=== PATIENT | male | born 1965 | race Caucasian/White ===

== ENCOUNTER 2019-11-02 11:09 | Observation (INO) | payer OTHER, SELFPAY ==
[2019-11-02] VITALS (7 sets, daily range): BP systolic 120–169; BP diastolic 68–106; PULSE 80–122; RESP 12–20; TEMP 36.6–37.2; O2SAT 95–100; BMI 25.2
--- NOTE | ~2019-11-02 | US_ITS ---
EXAMINATION: US venous doppler [facility] DATE: 11/03/2019 13:31 INDICATION: Calf pain. TECHNIQUE: Grayscale ultrasound images without and with compression and Doppler ultrasound images of the bilateral lower extremity veins were obtained. COMPARISON: None. FINDINGS: The visualized portions of right common femoral vein, profunda (deep) femoral vein, femoral vein, pop liteal vein, peroneal veins, posterior tibial veins, and greater saphenous vein outflow are patent. The visualized portions of left common femoral vein, profunda femoral vein, femoral vein, popliteal v ein, peroneal veins, posterior tibial veins, and greater saphenous vein outflow are patent. IMPRESSION: 1. No deep venous thrombosis. Reviewed, dictated and finalized at location A.
--- NOTE | ~2019-11-02 | CT_ITS ---
EXAMINATION: CT brain wo con EXAM DATE: 11/02/2019 12:08 INDICATION: Seizure, leg weakness. TECHNIQUE: Spiral CT of the head was performed without contrast. Axial, coronal and sagittal images were reviewed. The dose-length product (DLP) for this examination was 605.33 mGy-cm. The exposure w as tailored according to patient size, and iterative reconstruction (ASIR) was used as additional dos e reduction technique. There is no prior study for comparison. FINDINGS: There is no acute intraparenchymal hemorrhage. No evidence of intraparenchymal brain mass lesion. No evidence of acute infarction. Please note that initial head CT has limited sensitivity f or small or acute infarctions. There is mild periventricular and subcortical hypodensity, nonspecific but probably related to small vessel ischemic disease. There is mild prominence of the sulci and v entricles related to cerebral atrophy. There is intracranial carotid arteriosclerosis. There are n o extra-axial collections. There is no mass effect or midline shift. Patient has had bilateral ocul ar lens surgery. Soft tissue is unremarkable. The visualized sinuses and mastoid air cells are well aerated. IMPRESSION: 1. No acute intracranial findings. 2. Chronic age related findings. Reviewed, dictated and finalized at location A.
--- NOTE | ~2019-11-02 | XR_ITS ---
EXAMINATION: XR chest 1V portable EXAM DATE: 11/02/2019 11:47 INDICATION: Seizure. TECHNIQUE: Portable AP frontal chest x-ray was obtained. There is no prior study for comparison. FINDINGS: The lungs are clear. There are no pleural effusions. . Cardiomediastinal silhouette is no rmal. There is no pneumothorax suspected. Old left rib fracture posterolaterally. IMPRESSION: No acute cardiopulmonary findings. Reviewed, dictated and finalized at location A.
--- NOTE | 2019-11-02 11:31 | ECG_ITS ---
Measurements Intervals [place] Rate: 96 P: 64 ID: [id number] QRS: 79 QRSD: 92 T: 62 QT: 321 QTc: 407 Interpretive Statements SINUS RHYTHM BASELINE ARTIFACT- I, II, III, AVR, AVL, AVF NORMAL ECG Electronically Signed On 11-02-2019 14:08:26 CDT by Elijah Ramirez D.O.
--- NOTE | 2019-11-02 11:33 | ED.SEIZURE ---
HPI - Seizure General Chief Complaint: Seizure Stated Complaint: SZ Time Seen by Provider: 11/02/19 11:16 Source: patient and EMS Mode of arrival: EMS History of Present Illness HPI Narrative: This patient is a 54 year old male who denies medical problems who presents for evaluation of a seizure. 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 EMS states it was described as a general tonic clonic seizure and patient was postictal on EMS arrival. Patient reports he remembers going to work and he felt dehydrated at that time. HE denies headache, nausea, vomiting , diarrhea or chest pain. He also denies history of a previous seizure. He admitted to heavy daily alcohol use but he is unable state how many beers per day he drinks. His last beer was last night before he went to sleep. complaint: seizure Description of Episode: tonic-clonic movement Witnessed: Yes - by Bystander Trauma: No Seizure History: No Place: work Possible Precipitating Event: other (working in heat) Associated symptoms: malaise Related Data Home Medications Medication Instructions Recorded Confirmed No Home Medications 11/02/19 11/02/19 Allergies Allergy/AdvReac Type Severity Reaction Status Date / Time No Known Allergies Allergy Verified 11/02/19 11:18 Review of Systems Review of Systems: All systems reviewed & are unremarkable except as noted in HPI and below Constitutional: Constitutional: Denies chills and Denies fever(s) Cardiovascular: Cardiovascular: Denies chest pain and Denies radiating jaw, neck or arm pain Respiratory: Respiratory: Denies cough and Denies dyspnea Gastrointestinal: Gastrointestinal: Denies abdominal pain, Denies nausea and Denies vomiting Psychiatric: Psychiatric: Denies anxiety PMFSH Past Medical History Medical History (Updated 11/02/19 @ 14:18 by Mara Branch MD) Patient denies medical problems Surgical History Surgical History (Updated 11/02/19 @ 11:40 by Mara Branch MD) No significant past surgical history Family History Family History (Updated 11/02/19 @ 16:44 by Milan Morfin RN) Mother Metastasis from breast cancer Social History Social History (Updated 11/02/19 @ 11:40 by Mara Branch MD) Smoking packs per day: 1 Smoking cigarettes per day: 20.0 Years smoked: 16 Smoking pack-years: 16.00 Smoking status: Current every day smoker Tobacco type: cigarettes Second hand tobacco smoke exposure: Yes Alcohol intake: current Substance use: never Other substance usage details: Patient states he is unsure of the amount he drinks. Gender identity (if verbalized by the patient): Male Spiritual care concerns: No Exam Narrative: Exam Narrative: GENERAL: Well-appearing, well-nourished, and in no acute distress. HEAD: Normocephalic, atraumatic EYES: PERRLA and EOMI, conjunctiva clear without discharge EARS: TM's clear bilaterally without erythema or dullness NOSE: Nares clear, no rhinorrhea or epistaxis THROAT:Mucous membranes moist, Oropharynx normal without erythema, exudate, peritonsillar swelling or fluctuance NECK: Supple, without lymphadenopathy or mass RESPIRATORY: No respiratory distress, Airway patent, Respirations non-labored, Clear to auscultation without rales, rhonchi or wheeze HEART: tachycardic rate and regular rhythm. No murmur heard. Normal peripheral pulses. ABDOMEN: Soft, nontender, nondistended, normal active bowel sounds. No masses. No rebound or guarding, No organomegaly. EXTREMITIES: No edema, normal strength with full range of motion. SKIN: Warm, dry, normal color without rash, extremely tanned NEURO: Alert and oriented x3. CN 2-12 grossly intact. No focal deficits. PSYCH: Normal mood and affect. Course Reevaluation(s) Reevaluation #1: Patient is agreeable to admission for seizure and alcohol withdrawal. He is only slightly tremulous in hands. He is
[2019-11-02 11:53] LABS: Alveolar/Arterial O2 Gradient 42.7 mmHg; Base Excess ABG -4.9 mEq/l (+/-2.0); Carboxyhemoglobin 2.7 % THb (0-2.0); Fractional Inspired Oxygen 21 %; HCO3 ABG 17.6 mEq/l (22.0-26.0); Methemoglobin ABG 0.2 %THb (0-1.5); Oxygen Content ABG 18.9 %vol (16.0-22.0); Oxygen Saturation ABG 95.6 % (95.0-100.0); Oxyhemoglobin 92.2 % THb (90.0-100.0); PO2 ABG 74.7 mmHg (80.0-100.0); PO2 FiO2 Ratio Arterial Blood 3.56 %; Reduced Hemoglobin 4.9 %THb (0-5.0); Total Hemoglobin 14.6 g/dL (12.0-18.0); pH ABG 7.433 (7.350-7.450)
[2019-11-02 11:54] LABS: Device ROOM AIR; Modified Allen's Test Pass; Site Drawn RIGHT RADIAL
[2019-11-02 12:34] LABS: Basophils Percent Auto 0.2 % (0.2-1.2); Hemoglobin 14.6 g/dL (14.0-18.0); Immature Granulocyte Absolute 0.03 K/mm3 (0.00-0.031); Immature Granulocyte Percent A 0.6 % (0-0.5); Immature Platelet Fraction Pct 5.2 % (0.9-11.2); Lymphocytes Absolute Auto 0.41 K/mm3 (0.9-3.2); Lymphocytes Percent Auto 8.1 % (18.3-44.2); Mean Corpuscular HGB Conc 34.8 g/dl (32-36); Mean Corpuscular Hemoglobin 32.5 pg (26-34); Mean Corpuscular Volume 93.5 fl (80-100); Mean Platelet Volume 10.6 fl (7.4-10.4); Monocytes Absolute Auto 0.4 K/mm3 (0.1-0.6); Monocytes Percent Auto 7.1 % (2.6-8.5); Neutrophils Absolute Auto 4.2 K/mm3 (1.3-6.7); Platelet Count Result 105 k/mm3 (150-375); Red Blood Count 4.49 M/mm3 (4.6-6.20); Red Cell Distribution Width 14.3 % (11.5-14.5)
[2019-11-02] MEDS: SODIUM CHLORIDE 0.9% IV 1,000 ML 999 ML IV CONT ×2 (12:34→12:35)
[2019-11-02 12:44] LABS: Prothrombin Time 12.6 Seconds (11.1-14.7)
[2019-11-02 12:47] LABS: Alanine Aminotransferase 99 U/L (4-50); Albumin Level 4.5 g/dL (3.5-5.1); Alkaline Phosphatase 111 U/L (38-126); Aspartate Amino Transferase 160 U/L (17-59); Bilirubin,Total 0.9 mg/dL (0.2-1.3); Blood Urea Nitrogen 11 mg/dL (9-20); Calcium 8.8 mg/dL (8.4-10.2); Carbon Dioxide 21 mmol/L (22-30); Chloride 103 mmol/L (98-107); Estimated CRCL calculation 65 ml/min; Estimated Glomerular Filt Rate > 60; Glucose 106 mg/dL (75-110); Magnesium 1.7 mg/dL (1.6-2.3); Potassium 4.4 mmol/L (3.4-5.0); Sodium 134 mmol/L (137-145)
[2019-11-02 12:54] LABS: Ammonia < 9 umol/L (9-30)
[2019-11-02 13:00] LABS: Ethanol < 10 mg/dL (<10)
[2019-11-02 13:51] LABS: Amphetamine Screen Urine Negative (Negative); Barbiturate Screen Urine Negative (Negative); Benzodiazepines Screen Urine Negative (Negative); Cannabinoid Screen Urine Positive (Negative); Cocaine Screen Urine Negative (Negative); Methadone Screen Urine Negative (Negative); Opiate Screen Urine Negative (Negative); Phencyclidine Screen Urine Negative (Negative)
[2019-11-02 15:14] LABS: Appearance Urine Clear (Clear); Blood Urine 1+ (Negative); Color Urine Straw (Yellow); Glucose Urine UA Negative (Negative); Ketones Urine 1+ mg/dL (Negative); Protein Urine Negative (Negative); Specific Grav Ur 1.012 (1.001-1.035)
[2019-11-02 15:15] LABS: Add Urine Microscopic? YES; Bilirubin Urine Negative (Negative); Leukocyte Esterase Ur Negative LEU/UL (Negative); Mucus Urine Rare /lpf; Nitrate Urine Negative (Negative); RBC Urine 0-2 /hpf (0-2); Urobilinogen Urine Negative mg/dL (<2.0); WBC Urine 0-3 /hpf
[2019-11-02] MEDS: NICOTINE (*PBKC) 14 MG PATCH 1 PATCH TRANSDERM (15:31)
--- NOTE | 2019-11-02 16:29 | ADMGEN ---
This patient, Shalom Paniagua, was admitted to 2 Medical Room 257-. Patient/family oriented to hospital policies and general routines including ID bracelet, bed and alarms, visiting hours, pain management, procedures, bathroom and other care routines, personal items, smoking policy, room service/diet, and visiting hours. Valuables list has been completed. Information on how to activate the Rapid Response Team has been discussed. Patient/Family are encouraged to report perceived risks to care and to ask questions if they do not understand what they are told or what they should do.
--- NOTE | 2019-11-02 19:52 | PM.IMHP ---
H&P: HPI History of Present Illness Chief complaint: new onset seizure/alcohol withdrawal Narrative: Shalom Paniagua is a 54 year old male no past medical history but has a history of alcoholism. The patient stated that he has been binge drinking for about 5 months since he has been on the state home order due to COVID. The patient stated that he went back to work today and got overheated and woke up in the hospital. Patient stated he last drank last night. He thinks he possibly drinks about 8 beers a night. 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 No acute intracranial findings. Chronic age-related findings. Chest x-ray was read as no acute cardiopulmonary findings. A banana bag was found on the patient in the emergency room. Neurology was called. IV fluids were started, nicotine patch, in Ativan in the emergency room. Date of service 11/02/2019 Review of Systems Review of Systems: All systems reviewed & are unremarkable except as noted in HPI and below Constitutional: Constitutional: Reports as per HPI and Reports no additional constitutional complaints Eyes: Eyes: Reports as per HPI and Reports no additional eye complaints ENT: Reports system reviewed and no additional complaints, except as documented and Reports Normal hearing present Cardiovascular: Cardiovascular: Reports no additional cardiovascular complaints Respiratory: Respiratory: Reports no additional respiratory complaints and Reports no additional respiratory complaints Gastrointestinal: Gastrointestinal: Reports as per HPI and Reports no additional gastrointestinal complaints Musculoskeletal: Musculoskeletal: Reports no additional musculoskeletal complaints Integumentary/Breasts: Skin/Breast: Reports system reviewed and no additional complaints, except as docu and Reports as per HPI Neurologic: Reports system reviewed and no additional complaints, except as documented, Reports as per HPI and Reports Normal hearing present Psychiatric: Psychiatric: Reports no additional psychiatric complaints and Reports as per HPI Endocrine: Endocrine: Reports no additional endocrine complaints Hematologic/Lymphatic: Hematologic/Lymphatic: Reports no additional hematologic/lymphatic complaints Allergic/Immunologic: Allergic/Immunologic: Reports no additional allergic/immunologic complaints [facility] Past Medical History Medical History (Updated 11/02/19 @ 20:05 by Crorine Oquendo NP) Patient denies medical problems Surgical History Surgical History (Updated 11/02/19 @ 11:40 by Mara Branch MD) No significant past surgical history Family History Family History (Updated 11/02/19 @ 20:00 by Corrine Oquendo NP) Mother Metastasis from breast cancer Father Dementia Social History Social History (Updated 11/02/19 @ 20:02 by Corrine Oquendo NP) Social History: The patient stated that he lives with a significant other and that she would be his durable power attorney law clerk for healthcare in the event that he was not able to make decisions for himself. He is cohabitating with his significant other. He has no children. He works for [employer]. He states that he might drink anywhere from 8-10 beers a day but he does not really count. He does not think he drinks a 12 pack though. He does occasionally use some marijuana but no other illicit drugs. Patient desires to be a full code. He continues to smoke a pack a cigarettes a day. Smoking packs per day: 1 Smoking cigarettes per day: 20.0 Years smoked: 16 Smoking pack-years: 16.00 Smoking status: Current every day smoker Tobacco type: cigarettes Second hand tobacco smoke exposure: Yes Alcohol intake: current Substance use: never Other substance usage details: Patient states he is unsure of the amount he drinks. Gender identity (if verbalized by the patient): Male Spiritual care concerns: No Meds Home Medications and Aller
[2019-11-03] VITALS: PULSE 68; PULSE 72
[2019-11-03 04:00] VITALS: PULSE 74; PULSE 76
[2019-11-03 05:08] LABS: Basophils Percent Auto 0.5 % (0.2-1.2); Hematocrit 40.2 % (42.0-52.0); Hemoglobin 13.7 g/dL (14.0-18.0); Immature Granulocyte Absolute 0.01 K/mm3 (0.00-0.031); Immature Granulocyte Percent A 0.3 % (0-0.5); Lymphocytes Absolute Auto 1.03 K/mm3 (0.9-3.2); Lymphocytes Percent Auto 26.3 % (18.3-44.2); Mean Corpuscular HGB Conc 34.1 g/dl (32-36); Mean Corpuscular Hemoglobin 32.4 pg (26-34); Mean Platelet Volume 10.3 fl (7.4-10.4); Monocytes Absolute Auto 0.5 K/mm3 (0.1-0.6); Monocytes Percent Auto 12.2 % (2.6-8.5); Neutrophils Absolute Auto 2.3 K/mm3 (1.3-6.7); Neutrophils Percent Auto 59.7 % (45.5-73.1); Platelet Count Result 91 k/mm3 (150-375); Red Blood Count 4.23 M/mm3 (4.6-6.20); Red Cell Distribution Width 14.4 % (11.5-14.5); White Blood Count 3.9 K/mm3 (4.5-10.0)
[2019-11-03 05:19] LABS: Alanine Aminotransferase 86 U/L (4-50); Albumin Level 3.9 g/dL (3.5-5.1); Alkaline Phosphatase 84 U/L (38-126); Aspartate Amino Transferase 147 U/L (17-59); Bilirubin,Total 0.9 mg/dL (0.2-1.3); Blood Urea Nitrogen 8 mg/dL (9-20); CRP 0.6 mg/dL (<1.0); Calcium 8.1 mg/dL (8.4-10.2); Carbon Dioxide 19 mmol/L (22-30); Chloride 104 mmol/L (98-107); Estimated CRCL calculation 88 ml/min; Estimated Glomerular Filt Rate > 60; Glucose 82 mg/dL (75-110); Lactic Acid 0.5 mmol/L (0.7-2.1); Magnesium 2.2 mg/dL (1.6-2.3); Potassium 3.7 mmol/L (3.4-5.0); Sodium 135 mmol/L (137-145)
[2019-11-03 06:00] VITALS: BP 119/71; PULSE 77; RESP 16; TEMP 36.8; O2SAT 98
[2019-11-03 08:00] VITALS: PULSE 90
[2019-11-03] MEDS: FOLIC ACID 1 MG TABLET PO (08:23)
[2019-11-03] MEDS: THIAMINE HCL 100 MG TABLET PO (08:23)
[2019-11-03 12:00] VITALS: PULSE 90
[2019-11-03 14:00] VITALS: BP 160/96; PULSE 78; RESP 14; TEMP 36.8; O2SAT 100
--- NOTE | 2019-11-03 15:05 | WPDNEURCNPN ---
Assessment and Plan Assessment and plan (1) Tobacco abuse: Code(s): Z72.0 - Tobacco use Status: Acute (2) New onset seizure: Code(s): R56.9 - Unspecified convulsions Status: Acute (3) Alcohol withdrawal: Code(s): F10.239 - Alcohol dependence with withdrawal, unspecified Status: Acute Additional Plan patient has already signed AMA. He just does not want to wait for any workup he is in so much [place] that he will not be able to answer any further questions by this examiner I have very politely suggested that he should sees primary care physician for the follow-up and should not be driving. I also told him seek advise for his alcohol. I do not believe that he is going to listen to me and follow through on my advise as he has signed against medical advise Consult date: 11/03/19 Time Seen: 15:00 HPI: Shalom Paniagua is a 54 year old male where mouse to see because of alleges seizures. The patient has already signed out AMA and just wants to leave he barely was able to talk to me for few minutes what he tells me is as follows next He told me am going to leave no matter what he denies any headache nausea vomiting chest pain or shortness of breath he also tells me that he has always been a borderline epileptic I do not know what does he mean by that he is ambidextrous and does not have a family to give me a family history he does drink heavily he accepts it and no nodes risk in the benefits his CT head is negative he does not want to have the EEG does not want to have the MRI and just wants to go home Review of Systems Review of Systems: All systems reviewed & are unremarkable except as noted in HPI and below PMFSH Past Medical History Medical History Patient denies medical problems Surgical History Surgical History No significant past surgical history Family History Family History Mother Metastasis from breast cancer Father Dementia Social History Social History Social History: The patient stated that he lives with a significant other and that she would be his durable power estate planning attorney for healthcare in the event that he was not able to make decisions for himself. He is cohabitating with his significant other. He has no children. He works for [employer]. He states that he might drink anywhere from 8-10 beers a day but he does not really count. He does not think he drinks a 12 pack though. He does occasionally use some marijuana but no other illicit drugs. Patient desires to be a full code. He continues to smoke a pack a cigarettes a day. Smoking packs per day: 1 Smoking cigarettes per day: 20.0 Years smoked: 16 Smoking pack-years: 16.00 Smoking status: Current every day smoker Tobacco type: cigarettes Second hand tobacco smoke exposure: Yes Alcohol intake: current Substance use: never Other substance usage details: Patient states he is unsure of the amount he drinks. Gender identity (if verbalized by the patient): Male Spiritual care concerns: No Meds Home Medications and Allergies Home Medications Medication Instructions Recorded Confirmed Type No Home Medications 11/02/19 11/02/19 History Allergies Allergy/AdvReac Type Severity Reaction Status Date / Time No Known Allergies Allergy Verified 11/02/19 11:18 Vital Signs Vital Signs - 24 hr 11/02/19 16:17 11/02/19 16:30 11/02/19 20:00 Temperature 36.6 C Pulse Rate 86 85 81 Pulse Rate [Left Radial Palpation] 88 Respiratory Rate 18 Blood Pressure 169/90 H Pulse Oximetry 100 11/02/19 21:19 11/03/19 00:00 11/03/19 04:00 Temperature 37.2 C Pulse Rate 80 72 74 Pulse Rate [Left Radial Palpation] 68 76 Respiratory Rate 12 Blood Pressure 120/68 Pulse Oximetry 98
--- NOTE | 2019-11-03 15:31 | PM.DS ---
DS: Admitting Diagnosis Admitting Diagnosis Admitting Diagnosis: Unspecified convulsions DS: Discharge Diagnosis Discharge Diagnosis (1) New onset seizure: Code(s): R56.9 - Unspecified convulsions Status: Acute Assessment and Plan: Most likely due to his binge drinking vs dehydration from working out in the heat. Patient was given IV Ativan upon arrival in the ER. Patient has never had a seizure in the past. telemetry showed normal sinus rhythm with a heart rate of 95 bpm, which elevated to sinus tachycardia when he went to the bathroom. no acute cardiac arrhythmia noted. He denies any chest pain, shortness of breath or cough. An EEG has been ordered and they were suppose to get to him this afternoon but we called and they will not do his testing until tomorrow morning the patient refused to stay another day to have the EEG completed. I called Dr. Sofia the neurologist, who wanted to evaluate the patient before he would be discharged. I was called by the nursing staff and inform that the patient is going to leave against medical advice because his ride was leaving and he did not want to stay any longer. I informed the patient that he needs to follow-up with primary care provider within 1 week of discharge and our neurologist for further evaluation and workup. Informed the patient he should not drive or go back to work until cleared by his primary care provider or neurologist. the patient side to leave against medical advice prior to seeing our neurologist (2) Alcohol withdrawal: Code(s): F10.239 - Alcohol dependence with withdrawal, unspecified Status: Acute Assessment and Plan: the patient has been drinking more heavily for the last 5 months since he has been without a job because of COVID his alcohol level on arrival was normal He was given thiamin and folic acid. he was not given any Librium because of his normal CIWA score. His CIWA has been 0 or 1. he is not have any withdrawal symptoms at this time. He was instructed not to drink anymore after discharge to prevent any further seizures or liver problems. (3) Tobacco abuse: Code(s): Z72.0 - Tobacco use Status: Acute Assessment and Plan: Patient has been offered a nicotine patch. (4) Calf pain: Code(s): M79.669 - Pain in unspecified lower leg Status: Acute Assessment and Plan: patient reports significant calf discomfort but states because of his job. he denies any leg swelling. venous Doppler of his lower extremities were completed and negative for any acute DVT DS: Summary Hospital Course Reason for hospitalization: Patient is a 54-year-old man with a history of alcohol abuse, presented to the emergency room after he was working outside in the heat for the 1st time in 5 months and had a possible seizure that was reported by some of his colleagues. He has been binge drinking for the last 5 months since he has been out of work about 5 beers a night. He does report feeling pretty dehydrated with working out the heat. he does not remember anything until he woke up in the ambulance on the way to the ER. initial labs showed, temp 98.8, blood pressure 147/106, tachycardic heart rate of 122, respiratory rate 20, oxygen saturation 95% on room air. Initial labs showed, thrombocytopenia 105, normal coag panel, slightly low sodium at 134, AST slightly elevated at 160 and ALT at 99. normal TSH. Normal CRP. Urinalysis showed 1+ ketones, 1+ blood and 3-4 hyaline cast. No acute infection. Urine drug screen was positive for cannabinoids. alcohol level was 0. chest x-ray showed no acute cardiopulmonary findings. CT head showed no acute intracranial findings. Chronic age related findings. he
== END 2019-11-03 15:09 | disposition left against medical advice (07) ==
LOC: ANHED 14:28 → ANH2MED 14:49
PROVIDERS: Nurse Practitioner; Admitting Provider Internal Medicine; Emergency Provider General Practice; Visit Provider Physician Assistant
DX: R56.9 Unspecified convulsions (principal); F10.239 Alcohol dependence with withdrawal, unspecified; M79.662 Pain in left lower leg; M79.661 Pain in right lower leg; F17.210 Nicotine dependence, cigarettes, uncomplicated; R00.0 Tachycardia, unspecified
CPT/HCPCS: 36415; 36600; 70450; 71045; 80053; 80307; 81001; 82140; 82375; 82805; 83050; 83605; 83735; 84443; 85025; 85055; 85610; 85730; 86140; 93005; 93970; 96361; 96365; 96375; 99285; A9270; G0378; G0379; J2060; J3411; J3475; J7030

== ENCOUNTER 2020-11-27 19:26 | Emergency (ER) | payer OTHER, SELFPAY ==
--- NOTE | ~2020-11-27 | CT_ITS ---
EXAMINATION: CT pelvis wo con DATE: 11/27/2020 20:41 INDICATION: Back pain post fall TECHNIQUE: High resolution computed tomography (CT) of the was performed without intravenous contrast . Additional sagittal and coronal reconstructions were performed. Automated exposure control and iter ative reconstruction technique were employed. The dose-length product was 180.45 mGy-cm. COMPARISON: None FINDINGS: 2 mm retrolisthesis L4 on L5 and L5 on S1 with moderate to severe disc height loss at both levels. Reuben ne alignment is otherwise normal. No fracture. Mild bilateral hip osteoarthritis. No hip joint effusi on. Small sclerotic bone islands at the right femoral neck and at the left posterior iliac spine. Non specific 5.7 x 3.2 x 2.6 cm low-attenuation cystic fluid collection extending along the anterior left gluteus minimus muscle belly without evident soft tissue component, possibly a ganglion cyst. No rcihmond rrounding inflammatory stranding or higher attenuation hemorrhage to suggest sequela of acute injury. Visualized portion of the bowels including the appendix are normal. Bladder is normal. No free fluid in the pelvis. No pathologically enlarged pelvic or inguinal lymphadenopathy. IMPRESSION: 1. No fracture or other acute osseous abnormality. 2. Moderate to severe lower lumbar spondylosis. 3. Ossific 5.7 x 3.2 x 2.6 similar cystic lesion in the left gluteus minimus muscle belly which could represent a ganglion cyst. Location is somewhat unusual and could consider further evaluation with p re and postcontrast MRI. Reviewed, dictated and finalized at location A. IMPRESSION: 1. No fracture or other acute osseous abnormality. 2. Moderate to severe lower lumbar spondylosis. 3. Ossific 5.7 x 3.2 x 2.6 similar cystic lesion in the left gluteus minimus mu scle belly which could represent a ganglion cyst. Location is somewhat unusual and could consider further evaluation with pre and postcontrast MRI.
--- NOTE | ~2020-11-27 | CT_ITS ---
EXAMINATION: CT brain wo con DATE: 11/27/2020 20:41 INDICATION: Fall with syncope TECHNIQUE: Computed tomography (CT) of the head was performed without intravenous contrast. Sagittal and coronal reconstructions were performed. The mA was adjusted according to patient size. Iterative reconstruction technique was employed. The dose-length product was 681.00 mGy-cm. COMPARISON: head CT dated 11/02/2019 FINDINGS: No fracture. No acute intracranial hemorrhage, acute infarction or abnormal extra axial fluid collect ion. Symmetric prominence of the sulci and subarachnoid spaces overlying the convexities consistent w ith mild age-appropriate diffuse cerebral volume loss. Ventricles are normal and symmetric. No mass/ mass effect. Mucous retention cyst in the right maxillary sinus. The orbits and mastoid air cells are normal. IMPRESSION: 1. No fracture or acute intracranial process. Reviewed, dictated and finalized at location A.
--- NOTE | ~2020-11-27 | XR_ITS ---
EXAMINATION: XR chest 1V portable DATE: 11/27/2020 20:41 INDICATION: Syncope and fall TECHNIQUE: frontal view of the chest was obtained. COMPARISON: Chest radiograph dated 11/02/2019 FINDINGS: The lungs remain clear with no focal airspace opacities, pulmonary edema, pleural effusion or pneumot horax. The cardiomediastinal silhouette is normal. Visualized bones and soft tissues are unremarkable . IMPRESSION: 1. No acute cardiopulmonary disease. Reviewed, dictated and finalized at location A.
[2020-11-27 19:30] VITALS: BP 148/100; PULSE 56; RESP 20; TEMP 37.3; O2SAT 96
--- NOTE | 2020-11-27 19:43 | ECG_ITS ---
Measurements Intervals [place] Rate: 117 P: [place]: 0 QRS: -19 QRSD: 85 T: 75 QT: 303 QTc: 423 Interpretive Statements SINUS TACHYCARDIA BORDERLINE R WAVE PROGRESSION, ANTERIOR LEADS BASELINE ARTIFACT- AVL, V2 ABNORMAL ECG Electronically Signed On 11-28-2020 6:27:50 CDT by Elijah Ramirez D.O.
[2020-11-27 20:27] LABS: Hematocrit 44.6 % (40.0-54.0); Hemoglobin 15.5 g/dL (14.0-18.0); Immature Platelet Fraction Pct 8.9 % (1.0-7.0); Mean Corpuscular HGB Conc 34.8 g/dL (32.0-36.0); Mean Corpuscular Hemoglobin 31.8 pg (27.0-31.0); Mean Corpuscular Volume 91.4 fL (78.0-102.0); Mean Platelet Volume 12.7 fl (8.7-11.0); Platelet Count Result 67 K/mm3 (150-420); Red Blood Count 4.88 M/mm3 (4.70-6.10); White Blood Count 3.5 K/mm3 (4.8-10.8)
[2020-11-27] MEDS: ONDANSETRON INJ 4 MG/2 ML VIAL IV PUSH (20:31)
[2020-11-27] MEDS: SODIUM CHLORIDE 0.9% IV 1,000 ML 999 ML IV CONT (20:31)
[2020-11-27] MEDS: PANTOPRAZOLE SODIUM IV 40 MG VIAL IV PUSH (20:31)
[2020-11-27 20:39] LABS: Alanine Aminotransferase 116 U/L (16-63); Albumin Level 4.4 g/dL (3.4-5.0); Alkaline Phosphatase 110 U/L (46-116); Anion Gap 21 mmol/L (8-16); Aspartate Amino Transferase 174 U/L (15-37); Bilirubin,Total 1.6 mg/dL (0.00-1.00); Blood Urea Nitrogen 11 mg/dL (7-18); Calcium 9.5 mg/dL (8.5-10.1); Carbon Dioxide 19 mmol/L (21-32); Chloride 96 mmol/L (98-108); Estimated Glomerular Filt Rate 56; Glucose 141 mg/dL (70-99); Osmolality Calculated 283 mOsm/kg (285-295); Potassium 4.5 mmol/L (3.5-5.1); Sodium 136 mmol/L (136-145); Total Protein 8.3 g/dL (6.4-8.2); Troponin I 8.4 ng/L (0.00-60.4)
[2020-11-27 20:41] LABS: Lactic Acid Reflex 3.4 mmol/L (0.4-2.0)
[2020-11-27 20:59] LABS: Ethanol < 3 mg/dL (0-6)
[2020-11-27 21:13] LABS: Add Urine Microscopic? YES; Appearance Urine Clear (Clear); Bilirubin Urine 1+ (Negative); Blood Urine 2+ (Negative); Color Urine Yellow (Yellow); Glucose Urine UA Negative (Negative); Ketones Urine 3+ (Negative); Leukocyte Esterase Ur Negative (Negative); Nitrate Urine Negative (Negative); Protein Urine 2+ (Negative); Specific Grav Ur 1.025 (1.010-1.020)
[2020-11-27 21:19] LABS: Amphetamine Screen Urine Negative (Negative); Barbiturate Screen Urine Negative (Negative); Benzodiazepines Screen Urine Negative (Negative); Cannabinoid Screen Urine Positive (Negative); Cocaine Screen Urine Negative (Negative); Methadone Screen Urine Negative (Negative); Opiate Screen Urine Negative (Negative); Phencyclidine Screen Urine Negative (Negative)
[2020-11-27 21:25] LABS: WBC Urine 0-3 /hpf (0-3)
[2020-11-27 21:26] LABS: Bacteria Urine 1+ /hpf; Hyaline Casts Urine 15-19 /lpf; Squamous Epithelial Cell Urine Occasional /hpf (Few)
[2020-11-27 21:27] LABS: Mucus Urine Heavy /lpf
[2020-11-27 21:59] LABS: Neutrophils Percent Manual 82 % (46-73); Total Cells Counted 100
[2020-11-27 22:00] LABS: Lymphocytes Absolute Manual 0.38 K/mm3 (1.1-4.5); Lymphocytes Percent Manual 11 % (18-44)
[2020-11-27 22:01] LABS: Band Neutrophils Percent 0 % (0-6); Basophils Percent Manual 0 % (0-1); Eosinophils Absolute Manual 0.03 K/mm3 (0.02-0.5); Eosinophils Percent Manual 1 % (1-6); Monocytes Absolute Manual 0.21 K/mm3 (0.1-0.90); Monocytes Percent Manual 6 % (3-9); Neutrophils Absolute Manual 2.87 K/mm3 (1.3-6.7); Platelet Estimate Adequate (Adequate)
--- NOTE | 2020-11-27 22:59 | ED.SYNCOPE ---
HPI - Syncope General Chief Complaint: Syncope Stated Complaint: ambulance Time Seen by Provider: 11/27/20 19:28 Source: patient, EMS and RN notes reviewed Mode of arrival: EMS Limitations: no limitations History of Present Illness MD complaint: loss of consciousness Onset (ago): hour(s) (1) -: minutes(s) Description of event: other (pt was reaching for an item in a store and collapsed. he had muscular spasms generalized.) Prodromal symptoms: lightheaded and nausea/vomiting Witnessed: Yes - by Bystander Context: during exertion, alcohol use and illicit drug use Injuries sustained associated with event: none Current symptoms: lightheaded and weakness History: history of CAD Treatments prior to arrival: none Related Data Allergies Allergy/AdvReac Type Severity Reaction Status Date / Time No Known Allergies Allergy Verified 11/02/19 11:18 Review of Systems Review of Systems: All systems reviewed & are unremarkable except as noted in HPI and below Constitutional: Constitutional: Reports as per HPI and Reports no additional constitutional complaints Eyes: Eyes: Reports as per HPI and Reports no additional eye complaints ENT: Reports system reviewed and no additional complaints, except as documented and Reports as per HPI Cardiovascular: Cardiovascular: Reports as per HPI and Reports no additional cardiovascular complaints Respiratory: Respiratory: Reports as per HPI and Reports no additional respiratory complaints Gastrointestinal: Gastrointestinal: Reports as per HPI, Reports no additional gastrointestinal complaints, Reports nausea and Reports vomiting Genitourinary: Genitourinary: Reports no additional male genitourinary complaints and Reports as per HPI Musculoskeletal: Musculoskeletal: Reports no additional musculoskeletal complaints and Reports as per HPI Integumentary/Breasts: Skin/Breast: Reports system reviewed and no additional complaints, except as docu and Reports as per HPI Neurologic: Reports system reviewed and no additional complaints, except as documented and Reports as per HPI Psychiatric: Psychiatric: Reports no additional psychiatric complaints and Reports as per HPI Endocrine: Endocrine: Reports no additional endocrine complaints and Reports as per HPI Hematologic/Lymphatic: Hematologic/Lymphatic: Reports no additional hematologic/lymphatic complaints and Reports as per HPI Allergic/Immunologic: Allergic/Immunologic: Reports no additional allergic/immunologic complaints and Reports as per HPI COUNT INCLUDES [facility] Past Medical History Medical History (Updated 11/27/20 @ 23:24 by Trina Izquierdo MD) Patient denies medical problems Surgical History Surgical History No significant past surgical history Family History Family History Mother Metastasis from breast cancer Father Dementia Social History Social History Social History: The patient stated that he lives with a significant other and that she would be his durable power federal district clerk for healthcare in the event that he was not able to make decisions for himself. He is cohabitating with his significant other. He has no children. He works for [employer]. He states that he might drink anywhere from 8-10 beers a day but he does not really count. He does not think he drinks a 12 pack though. He does occasionally use some marijuana but no other illicit drugs. Patient desires to be a full code. He continues to smoke a pack a cigarettes a day. Smoking packs per day: 1 Smoking cigarettes per day: 20.0 Years smoked: 16 Smoking pack-years: 16.00 Smoking status: Current every day smoker Tobacco type: cigarettes Second hand tobacco smoke exposure: Yes Alcohol intake: current Substance use: never Other substance usage details: Patient states he is unsure of the amount
[2020-11-27 23:17] LABS: Reflex Lactic Acid Yes or No Add Lactic
[2020-11-27 23:19] VITALS: BP 166/95; PULSE 98; RESP 16; TEMP 36.6; O2SAT 97
[2020-11-27 23:45] VITALS: BP 166/95; PULSE 91; RESP 20; TEMP 37.3; O2SAT 95
== END 2020-11-27 23:45 | disposition home or self-care (01) ==
PROVIDERS: Emergency Provider Emergency Medicine
DX: R55 Syncope and collapse (principal); E86.0 Dehydration; N39.0 Urinary tract infection, site not specified
CPT/HCPCS: 36415; 70450; 71045; 72192; 80053; 80307; 81001; 83605; 84484; 85025; 85055; 93005; 96361; 96374; 96375; 99283; 99284; C9113; J2405; J7030

== ENCOUNTER 2021-05-10 12:07 | Emergency (ER) | payer OTHER, MEDICAID, SELFPAY ==
[2021-05-10 12:32] VITALS: BP 141/99; PULSE 76; RESP 16; TEMP 36.6; O2SAT 100
--- NOTE | 2021-05-10 13:00 | PC.NURSE ---
pt outside to smoke cigarette. Gait steady.
--- NOTE | 2021-05-10 13:37 | PC.NURSE ---
watched pt walkout of ER with a steady gait. Walked toward side road along the hospital.
== END 2021-05-10 13:37 | disposition left against medical advice (07) ==
LOC: ANHED 13:56
DX: F10.20 Alcohol dependence, uncomplicated (principal)
CPT/HCPCS: 99199

== ENCOUNTER 2023-01-03 09:34 | Emergency (ER) | payer OTHER, MEDICAID, SELFPAY ==
--- NOTE | ~2023-01-03 | CT_ITS ---
EXAMINATION: CT brain wo con DATE: 01/03/2023 10:20 INDICATION: Headache and 17 days of migraine TECHNIQUE: Computed tomography (CT) of the head was performed without intravenous contrast. Sagittal and coronal reconstructions were performed. The mA was adjusted according to patient size. Iterative reconstruction technique was employed. The dose-length product was 681.00 mGy-cm. COMPARISON: head CT dated 11/27/2020 FINDINGS: Small old lacunar infarct at the left basal ganglia. No acute intracranial hemorrhage, acute infarcti on or abnormal extra axial fluid collection. Symmetric prominence of the sulciand subarachnoid spaces overlying the convexities consistent with unchanged mild age-appropriate diffuse cerebral volume los s. Ventricles are normal and symmetric. No mass/mass effect. Mild mucosal thickening in the right max illary sinus. The orbits and mastoid air cells are normal. IMPRESSION: 1. Small old lacunar infarct at the left basal ganglia. No acute intracranial process. Reviewed, dictated and finalized at location A. IMPRESSION: 1. Small old lacunar infarct at the left basal ganglia. No acute intracranial p rocess.
[2023-01-03 09:45] VITALS: BP 160/110; PULSE 76; RESP 18; TEMP 36.2; O2SAT 97
--- NOTE | 2023-01-03 10:04 | ED.HA ---
HPI - Headache General Chief Complaint: Headache Stated Complaint: high blood pressure Time Seen by Provider: 01/03/23 09:38 Source: patient and EMS Mode of arrival: EMS Limitations: no limitations History of Present Illness HPI Narrative: this is a 57-year-old male that presents via EMS after he has been having a persistent headache for the last 17 days he states by Alevism oral vicelike with no throbbing no light sensitivity or noise sensitive no nausea or vomiting no chest pain no shortness of breath no blurry vision no neck pain or neck stiffness no fever chills. There has been no known injury the patient does state that he has tried some [id number] aspirin with minimal relief, blood pressure is elevated. Patient does have a history of alcohol use, and was seen at [facility] and treated for a seizure disorder. Currently no seizure activity no abdominal pain no dysuria. No neurological deficits. MD elicited complaint: headache Onset (ago): week(s) Onset description: gradually Location: temporal and band-like Severity: severe Pain scale (0-10): 8 Quality & Timing: squeezing Exacerbating factors: none Relieving factors: nothing Context: occurred at rest Associated symptoms: none Treatments prior to arrival: other Related Data Allergies Allergy/AdvReac Type Severity Reaction Status Date / Time No Known Allergies Allergy Verified 01/03/23 09:46 Review of Systems Review of Systems: All systems reviewed & are unremarkable except as noted in HPI and below PMFSH Past Medical History Medical History (Updated 01/03/23 @ 10:40 by Mika Davis MD) Patient denies medical problems Surgical History Surgical History No significant past surgical history Family History Family History Mother Metastasis from breast cancer Father Dementia Social History Social History Social History: The patient stated that he lives with a significant other and that she would be his durable power deputy county attorney for healthcare in the event that he was not able to make decisions for himself. He is cohabitating with his significant other. He has no children. He works for [employer]. He states that he might drink anywhere from 8-10 beers a day but he does not really count. He does not think he drinks a 12 pack though. He does occasionally use some marijuana but no other illicit drugs. Patient desires to be a full code. He continues to smoke a pack a cigarettes a day. Smoking packs per day: 1 Smoking cigarettes per day: 20.0 Years smoked: 16 Smoking pack-years: 16.00 Smoking status: Current every day smoker Tobacco type: cigarettes Second hand tobacco smoke exposure: Yes Alcohol intake: current Substance use: never Other substance usage details: Patient states he is unsure of the amount he drinks. Gender identity (if verbalized by the patient): Male Spiritual care concerns: No Exam Const: General: no acute distress Nutritional Appearance: well nourished Limitations: no limitations HENMT: Head: normal to inspection Face and sinus: normal facial exam Eyes: Conjunctivae: conjunctivae normal Pupils: Equal, round and reactive pupils present EOM: EOMs intact bilaterally Direct Ophthalmoscopy: no photophobia Neck: Neck: normal visual inspection, no lymphadenopathy and no meningeal signs Chest: Chest palpation & inspection: normal inspection of the chest Resp: Effort & Inspection: normal respiratory effort Auscultation: clear to auscultation bilaterally Cardio: Rate: regular rate Rhythm: regular rhythm GI: GI Palp: Yes Soft to palpation : General: Yes bladder normal to palpation Skin: General skin exam: normal color Wounds: no wounds Neuro: General: patient oriented x3, moves all extremities, no meningeal signs
[2023-01-03] MEDS: KETOROLAC (*BKC) 60 MG/2 ML VIAL IM (10:25)
[2023-01-03 10:28] VITALS: BP 153/95
== END 2023-01-03 10:55 | disposition home or self-care (01) ==
PROVIDERS: Emergency Provider Emergency Medicine
DX: G44.209 Tension-type headache, unspecified, not intractable (principal); F17.210 Nicotine dependence, cigarettes, uncomplicated
CPT/HCPCS: 70450; 96372; 99284; J1885